=== PATIENT | female | born 1940 | race Caucasian/White ===

== ENCOUNTER 2017-09-28 11:15 | Outpatient (CLI) | payer MEDICARE ==
--- NOTE | 2017-09-28 14:45 | XRAY Report ---
DATE OF SERVICE: 09/28/2017 TWO VIEW CHEST: 09/28/2017 CLINICAL INDICATION: Dyspnea. FINDINGS: Frontal and lateral views of the chest demonstrate a normal cardiac silhouette. The lungs are hyperinflated, compatible with COPD. No focal consolidation, effusion, or pneumothorax is present. IMPRESSION: CHRONIC OBSTRUCTIVE PULMONARY DISEASE, BUT NO EVIDENCE OF ACUTE CARDIOPULMONARY DISEASE. TD: 09/28/2017 14:44
== END 2017-09-28 11:16 | disposition home or self-care (01) ==
LOC: DI 11:15
PROVIDERS: ATTEND Registered Nurse
DX: R06.00 Dyspnea, unspecified (principal); I34.0 Nonrheumatic mitral (valve) insufficiency; J44.9 Chronic obstructive pulmonary disease, unspecified
CPT/HCPCS: 71046; 93306

== ENCOUNTER 2018-03-04 13:15 | Outpatient (CLI) | payer MEDICARE ==
--- NOTE | 2018-03-05 15:31 | Mammography Report ---
Procedure Date: 03/04/2018 Accession Number: [id number] / [id number] Procedure: REYMUNDO - Screening Mammo Dig Bilat CPT Code: FULL RESULT: EXAM: Screening Mammo Dig Bilat DATE: 03/04/2018 1:37 PM CLINICAL HISTORY: 77-year-old with family history of breast cancer, history of benign biopsy left breast for screening TECHNIQUE: Bilateral CC and MLO views were obtained. COMPARISON: 11/29/2015, 11/17/2013, 10/15/2012, 09/28/2012 FINDINGS: The breasts demonstrate scattered fibroglandular densities bilaterally. Postbiopsy changes in the left breast are stable. Punctate, typically benign calcifications are present. No suspicious masses, clustered microcalcifications, or regions of architectural distortion are identified. IMPRESSION: Benign findings RECOMMENDATION: Routine annual screening unless otherwise clinically indicated. BIRADS CATEGORY 2: Benign findings STANDARD QUALIFYING STATEMENTS: 1. This examination was reviewed with the aid of Computer-Aided Detection (CAD). 2. A negative or benign imaging report should not delay biopsy if clinically suspicious findings are present. Consider surgical consultation if warrented. More than 5% of cancers are not identified by imaging. 3. Dense breasts may obscure an underlying neoplasm.
== END 2018-03-04 13:16 | disposition home or self-care (01) ==
LOC: DI 13:15
PROVIDERS: ATTEND Registered Nurse
DX: Z12.31 Encounter for screening mammogram for malignant neoplasm of breast (principal); Z80.3 Family history of malignant neoplasm of breast
CPT/HCPCS: 77067

== ENCOUNTER 2018-03-04 13:18 | Outpatient (CLI) | payer MEDICARE ==
--- NOTE | 2018-03-04 15:48 | DEXA Report ---
Procedure Date: 03/04/2018 Accession Number: [id number] / [id number] Procedure: DEX - Dexa Spine and/or Hip CPT Code: FULL RESULT: EXAM: Dexa Spine and/or Hip DATE: 03/04/2018 1:57 PM CLINICAL HISTORY: OSTEOPENIA TECHNIQUE: Dual energy x-ray absorptiometry (DXA) was performed on a [employer]. Regions measured are the AP Spine, femoral neck, and if needed forearm. COMPARISON: None. In accordance with the International Society for Clinical Densitometry (ISCD) guidelines, data from previous exams may be reanalyzed using current recommendations and techniques. This is done to allow a more accurate basis for comparison with the current study. FINDINGS: The data for the lumbar spine is as follows: BMD (g/cm/cm) T-SCORE Z-SCORE REGION L1 0.899 -1.9 -0.1 L2 1.095 -0.9 0.9 L3 1.189 -0.1 1.7 L4 1.233 0.3 2.1 TOTAL 1.114 -0.6 1.3 NOTE: All evaluable vertebrae are used for classification The data for the hip is as follows: BMD (g/cm/cm) T-SCORE Z-SCORE REGION Neck 0.799 -1.7 0.3 TOTAL 0.847 -1.3 0.5 NOTE: The femoral neck or total proximal femur, whichever is lowest, is used for classification. IMPRESSION: THE WHO CLASSIFICATION BASED ON THE INTERNATIONAL REFERENCE STANDARD IS OSTEOPENIA. THE FRACTURE RISK IS INCREASED. RECOMMENDATION: Patients with diagnosis of osteoporosis or osteopenia should have regular bone mineral density assessment. For those eligible for Medicare, routine testing is allowed once every 2 years. Testing frequency can be increased for patients who have rapidly progressing disease or for those who are receiving medical therapy to restore bone mass. COMMENT: World Health Organization (WHO) definitions for osteoporosis and osteopenia: NORMAL BMD: T-score at -1.0 or higher, fracture risk is low OSTEOPENIA BMD: T-score between -1.0 and -2.5, fracture risk is increased. OSTEOPOROSIS BMD: T-score at -2.5 or lower, fracture risk is high. National Osteoporosis Foundation recommends: 1. Obtain adequate dietary calcium (at least 1200 mg per day) and vitamin D (400-800 international units per day). 2. Participate, as appropriate, in regular weightbearing and muscle-strengthening exercise. 3. Avoid tobacco use and reduce alcohol and caffeine intake. 4. For more detailed information see the website at www.NOF.org.
== END 2018-03-04 13:19 | disposition home or self-care (01) ==
LOC: DI 13:18
PROVIDERS: ATTEND Registered Nurse
DX: M85.88 Other specified disorders of bone density and structure, other site (principal)
CPT/HCPCS: 77080

== ENCOUNTER 2018-03-29 09:21 | Outpatient (CLI) | payer MEDICARE ==
[2018-03-29] MEDS ORDERED: ALBUTEROL NEB 2.5 MG/3 ML INH ONE (10:30)
== END 2018-03-29 09:22 | disposition home or self-care (01) ==
LOC: RT 09:21
PROVIDERS: ATTEND Registered Nurse
DX: R06.00 Dyspnea, unspecified (principal)
CPT/HCPCS: 94060

== ENCOUNTER 2020-03-12 14:20 | Outpatient (CLI) | payer MEDICARE | END 2020-03-12 23:59 | disposition home or self-care (01) | LOC: COV 14:20 | PROVIDERS: ATTEND Family Medicine | DX: R06.02 Shortness of breath (principal); R53.83 Other fatigue; J02.9 Acute pharyngitis, unspecified; R11.2 Nausea with vomiting, unspecified; R68.83 Chills (without fever); Z20.828 Contact with and (suspected) exposure to other viral communicable diseases ==

== ENCOUNTER 2020-03-18 11:41 | Outpatient (CLI) | payer MEDICARE ==
[2020-03-18 11:54] LABS: BASOPHILS # (AUTO) 0.1 10^3/uL (0.0-0.1); BASOPHILS % (AUTO) 0.7 %; EOSINOPHILS # (AUTO) 0.2 10^3/uL (0.0-0.7); EOSINOPHILS % (AUTO) 2.5 %; HGB - HEMOGLOBIN 12.9 g/dL (12.0-16.0); LYMPHOCYTES # (AUTO) 2.1 10^3/uL (1.5-3.5); LYMPHOCYTES % (AUTO) 26.4 %; MEAN CORPUSCULAR HEMOGLOBIN 31.5 pg (27.0-31.0); MEAN CORPUSCULAR HGB CONC 33.5 g/dL (32.0-36.0); MEAN CORPUSCULAR VOLUME 93.9 fL (81.0-99.0); MONOCYTES # (AUTO) 0.7 10^3/uL (0.0-1.0); MONOCYTES % (AUTO) 8.6 %; NEUTROPHILS # (AUTO) 4.9 10^3/uL (1.5-6.6); NEUTROPHILS % (AUTO) 61.3 %; PLT - PLATELET COUNT 306 10^3/uL (130-450); RED CELL DISTRIBUTION WIDTH 11.8 % (12.0-15.0)
[2020-03-18 12:00] LABS: BILIRUBIN,URINE NEGATIVE (NEGATIVE); GLUCOSE, URINE (UA) NEGATIVE (NEGATIVE); KETONES,URINE (UA) NEGATIVE (NEGATIVE); LEUKOCYTE ESTERASE, URINE NEGATIVE (NEGATIVE); NITRITE,URINE NEGATIVE (NEGATIVE); OCCULT BLOOD,URINE NEGATIVE (NEGATIVE); PROTEIN,URINE NEGATIVE (NEGATIVE); UROBILINOGEN,URINE 0.2 (NORMAL) E.U./dL (NORMAL)
[2020-03-18 12:03] LABS: CLARITY,URINE CLEAR (CLEAR)
[2020-03-18 12:07] LABS: ALBUMIN 4.2 g/dL (3.2-5.5); ALBUMIN/GLOBULIN RATIO 1.2 (1.0-2.2); BILIRUBIN,TOTAL 0.6 mg/dL (0.2-1.0); CALCIUM 9.3 mg/dL (8.5-10.3); TOTAL PROTEIN 7.6 g/dL (6.7-8.2)
[2020-03-18 12:09] LABS: BACTERIA,URINE None Seen /HPF (None Seen); RBC,URINE None Seen /HPF (0-5); SQUAMOUS EPITHELIAL CELL,UR NONE SEEN (<= Few)
--- NOTE | 2020-03-18 12:34 | XRAY Report ---
PROCEDURE: Chest 2 View X-Ray INDICATIONS: DYSPNEA ON EXERTION,LAB DRAW TECHNIQUE: 2 view(s) of the chest. COMPARISON: Chest x-ray 09/28/2017 FINDINGS: Surgical changes and devices: None. Lungs and pleura: No pleural effusions or pneumothorax. Lungs are clear. Mediastinum: Mediastinal contours are normal. Heart size is normal. Bones and chest wall: No suspicious bony abnormalities. Soft tissues appear unremarkable. IMPRESSION: No acute pulmonary process. A message was left at the office of Dr. Michelle Lemus on 03/18/2020 12:30 PM, as no one was immediately av ailable for consultation. Reviewed by: Abigail Alba MD on 03/18/2020 12:32 PM PDT Approved by: Abigail Alba MD on 03/18/2020 12:32 PM PDT Station ID: [id number]
== END 2020-03-18 11:42 | disposition home or self-care (01) ==
LOC: LAB 11:41 → DI 11:42
PROVIDERS: ATTEND Registered Nurse
DX: R06.09 Other forms of dyspnea (principal); R53.83 Other fatigue
CPT/HCPCS: 36415; 71046; 80053; 81001; 83880; 85025; 85379; 87086

== ENCOUNTER 2020-04-01 10:25 | Outpatient (CLI) | payer MEDICARE | END 2020-04-01 10:26 | disposition home or self-care (01) | LOC: DI 10:25 | PROVIDERS: ATTEND Registered Nurse | DX: I51.7 Cardiomegaly (principal) | CPT/HCPCS: 93306 ==

== ENCOUNTER 2022-05-02 14:47 | Outpatient (CLI) | payer MEDICARE | END 2022-05-02 14:48 | disposition home or self-care (01) | LOC: DI 14:47 | PROVIDERS: ATTEND Internal Medicine Cardiovascular Disease | DX: I08.0 Rheumatic disorders of both mitral and aortic valves (principal) | CPT/HCPCS: 93306 ==

== ENCOUNTER 2023-12-25 20:50 | Outpatient (CLI) | payer MEDICARE ==
--- NOTE | 2023-12-25 22:36 | Ultrasound Report ---
PROCEDURE: Duplex Ext Veins Right INDICATIONS: RIGHT LOWER LEG SWELLING AND PAIN TECHNIQUE: Real-time imaging, as well as color and pulse Doppler interrogation, were performed of the lower extr emity deep veins from the inguinal ligament to the popliteal fossa. Attempted visualization of the ca lf veins was performed. COMPARISON: None. FINDINGS: The deep veins are normally compressible, and free of intraluminal thrombus. Color and pu lse Doppler demonstrate normal phasic intraluminal flow. There is normal augmentation response to di stal compression maneuver. IMPRESSION: No deep venous thrombosis of the visualized lower extremity. Reviewed by: Abigail Alba MD on 12/25/2023 10:34 PM PDT Approved by: Abigail Alba MD on 12/25/2023 10:34 PM PDT Station ID: [id number]
== END 2023-12-25 20:51 | disposition home or self-care (01) ==
LOC: DI 20:50
PROVIDERS: ATTEND Registered Nurse
DX: M79.604 Pain in right leg (principal); R22.41 Localized swelling, mass and lump, right lower limb

== ENCOUNTER 2024-01-12 17:43 | Outpatient (CLI) | payer MEDICARE ==
--- NOTE | 2024-01-12 18:34 | XRAY Report ---
PROCEDURE: Chest 2V INDICATIONS: RIGHT SIDE CHEST PAIN TECHNIQUE: 2 views of the chest were acquired. COMPARISON: None. FINDINGS: Surgical changes and devices: None. Lungs and pleura: No pleural effusions or pneumothorax. Lungs are clear. Hyperexpanded lung volum es. Mediastinum: Mediastinal contours appear normal. Heart size is normal. Bones and chest wall: No suspicious bony lesions. Overlying soft tissues appear unremarkable. IMPRESSION: No acute cardiopulmonary process. Reviewed by: Rudy Acosta MD on 01/12/2024 5:33 PM AKDT Approved by: Rudy Acosta MD on 01/12/2024 5:33 PM AKDT Station ID: [id number]
== END 2024-01-12 17:44 | disposition home or self-care (01) ==
LOC: DI 17:43
PROVIDERS: ATTEND Registered Nurse
DX: R07.89 Other chest pain (principal)

== ENCOUNTER 2024-03-25 11:24 | Outpatient (CLI) | payer MEDICARE ==
--- NOTE | 2024-03-26 10:51 | Mammography Report ---
BILATERAL DIGITAL SCREENING MAMMOGRAM 3D/2D: 03/25/2024 CLINICAL: Routine screening. Comparison is made to exams dated: 03/30/2022 mammogram, 03/04/2018 mammogram, and 11/29/2015 mammogram - [facility]. There are scattered areas of fibroglandular density in both breasts (category b / 25%-50% glandular t issue). There is a benign focal asymmetry in the left breast. There also are benign post operative findings in the left breast. No significant masses, calcifications, or other findings are seen in either breast. There has been no significant interval change. IMPRESSION: BENIGN There is no mammographic evidence of malignancy. A 1 year screening mammogram is recommended. Based on the Tyrer Cuzick model (a risk assessment model) the patient's lifetime risk is 3.3% and her 10 year risk is 0.0%. According to the ACR, ACS, and NCCN guidelines, an annual breast MRI exam torres g with mammogram is recommended if the patient's lifetime risk is 20% or greater. This exam was interpreted at Station ID: [id number]. NOTE: For mammograms, a report in lay terms will be sent to the patient. Approximately 15% of breast malignancies will not be visualized mammographically. In the management of a palpable breast mass, a negative mammogram must not discourage biopsy of a clinically suspicious lesion. Electronically Signed By: Hina echeverria/[email or web address]:03/25/2024 18:01:45 letter sent: No_Letter ACR BI-RADS Category 2: Benign Finding(s) 3342F PARENCHYMAL PATTERN: (A) - The breast(s) demonstrate(s) scattered fibroglandular densities. BI-RADS CATEGORY: (2) - 2 RECOMMENDATION: (ANNUAL) - Recommend routine annual screening mammography. [id number] 1 year screening LATERALITY: (B)
== END 2024-03-25 11:25 | disposition home or self-care (01) ==
LOC: DI 11:24
PROVIDERS: ATTEND Registered Nurse
DX: Z12.31 Encounter for screening mammogram for malignant neoplasm of breast (principal); R92.323 Mammographic fibroglandular density, bilateral breasts